=== PATIENT | female | born 1985 | race Two or more races ===

== ENCOUNTER 2021-03-15 00:59 | Emergency (ER) | payer OTHER ==
[~2021-03-15] VITALS: Ht 162.6 cm; Wt 86.4 kg
[2021-03-15 01:05] VITALS: BP 142/84
--- NOTE | 2021-03-15 01:12 | NUR ---
PATIENT AMBULATORY TO [facility] AREA OF ER WITH C/O SOB, FEVER OF 103 DEGREES, EXTREME BODY ACHES, DIARRHEA, AND DEHYDRATION. DENIES KNOWN EXPOSURE TO COVID. PATIENT IS UNVACCINATED. WEEPING D/T NOT FEELING WELL. O2 SAT 98% ON ROOM AIR.
--- NOTE | 2021-03-15 01:49 | NUR ---
PT SOBBING LOUDLY, STATES SHE NEEDS PAIN MEDICATION, ADVISED MD IS IN A PROCEEDURE AND NOT ABLE TO COME SEE HER PRESENTLY. PT. ANGRY WITH RN. SECURITY AWARE.
--- NOTE | 2021-03-15 03:30 | NUR ---
PATIENT IS SOBBING NON-STOP AND COMPLAINING THAT SHE WANTS TO LIE ON THE GROUND. PATIENT INFORMED THAT WE DID NOT HAVE RECLINER OR GURTYRON IN THE RAP AREA, SO PATIENT WAS GIVEN EXTRA CHAIR TO REST LEGS ON.
[2021-03-15] MEDS ORDERED: acetaminophen 325mg tablet PO ONE (03:45)
[2021-03-15] MEDS ORDERED: ALBU8HFA PO (03:51)
[2021-03-15] MEDS ORDERED: dexamethasone 4mg tablet PO ONE ×2 (03:55)
[2021-03-15] MEDS ORDERED: DEXAMETHASONE 6 MG TABLET PO ONE (03:55)
--- NOTE | 2021-03-15 04:00 | NUR ---
[facility] NSTRUCTIONS GIVEN TO PATIENT WITH TYLENOL FOR ELEVATED TEMPERATURE. PATIENT IS UPSET BECAUSE SHE WAS "NOT GIVEN ANY PAIN MEDICATION OR IV FLUIDS". PATIENT INFORMED THAT THE DOCTOR EVALUATED HER AND HAS PRESCRIBED TYLENOL AND DC RX FOR ALBUTEROL INHALER. PATIENT DEPARTED AMBULATORY IN STABLE CONDITION.
--- NOTE | 2021-03-15 04:25 | NUR ---
PATIENT FOLDED UP DC INSTRUCTIONS AND PRESCRIPTION AND PUT THE PAPERWORK IN THE GARBAGE PRIOR TO LEAVING THE ER RAP AREA.
--- NOTE | 2021-03-15 20:37 | NUR ---
received fax from lab pt is + covid. Called number on file, LM for her to call special agent in charge of er and phone number left for her to call.
== END 2021-03-16 07:24 | disposition home or self-care (01) ==
LOC: ER 05:07
DX: U07.1 COVID-19 (principal); R50.9 Fever, unspecified; Z88.6 Allergy status to analgesic agent; Z79.899 Other long term (current) drug therapy
CPT/HCPCS: 71045; 87635; 99283; C9803

== ENCOUNTER 2021-10-05 12:18 | Emergency (ER) | payer MEDICAID, OTHER ==
[~2021-10-05] VITALS: Ht 162.6 cm; Wt 90.9 kg
[2021-10-05] MEDS ORDERED: diphenhydrAMINE 50 mg/ml inj IM ONE (13:55)
[2021-10-05] MEDS ORDERED: proCHLORperazine 10 MG/2 ml inj IM ONE (13:55)
[2021-10-05] MEDS ORDERED: SUMAtriptan 5 mg Nasal Spray NS ONE (15:50)
[2021-10-05] MEDS ORDERED: SUMAtriptan 25 MG tablet PO ONE (16:00)
[2021-10-05 16:12] LABS: BASOPHILS % (AUTO) 0.4 % (0-1); EOSINOPHILS # (AUTO) 0.1 X10'3 (0-0.9); HEMOGLOBIN 13.8 g/dl (12.0-16.0); LYMPHOCYTES # (AUTO) 2.8 X10'3 (1.1-4.8); LYMPHOCYTES % (AUTO) 23.4 % (21-51); MEAN CORPUSCULAR HEMOGLOBIN 30.1 PG (27.0-31.0); MEAN CORPUSCULAR HGB CONC 33.7 g/dL (33.0-36.5); MEAN CORPUSCULAR VOLUME 89.1 FL (78-98); MEAN PLATELET VOLUME 8.4 FL (7.4-10.4); MONOCYTES # (AUTO) 0.4 X10'3 (0-0.9); MONOCYTES % (AUTO) 3.3 % (2-12); NEUTROPHILS # (AUTO) 8.5 X10'3 (1.8-7.7); NEUTROPHILS % (AUTO) 71.9 % (42-75); PLATELET COUNT 260 X10'3 (140-440); RED CELL DISTRIBUTION WIDTH 13.1 % (11.5-14.5); WHITE BLOOD COUNT 11.8 X10'3 (4.5-11.0)
[2021-10-05] MEDS ORDERED: iohexol 350MG/ML 100ml bottle IV ONE (16:12)
--- NOTE | 2021-10-05 16:28 | NUR ---
pt to [place]
[2021-10-05 16:30] LABS: ALANINE AMINOTRANSFERASE 21 U/L (12-78); ALBUMIN 4.2 G/DL (3.4-5.0); ALBUMIN/GLOBULIN RATIO 1.1 (1.1-1.5); ALKALINE PHOSPHATASE 52 IU/L (46-116); ANION GAP 12 (8-16); ASPARTATE AMINO TRANSFERASE 17 U/L (10-37); BILIRUBIN,TOTAL 0.5 MG/DL (0.1-1.0); BLOOD UREA NITROGEN 11 MG/DL (7-18); BUN/CREATININE RATIO 17.2 (6.6-38.0); CALCIUM 8.9 MG/DL (8.5-10.1); CHLORIDE 106 MMOL/L (99-107); CREATININE 0.64 MG/DL (0.40-0.90); GLUCOSE 84 MG/DL (70-104); POTASSIUM 3.8 MMOL/L (3.5-5.1); SODIUM 143 MMOL/L (135-145); TOTAL CARBON DIOXIDE 25.3 MMOL/L (24-32); eGFR > 90 ML/MIN
--- NOTE | 2021-10-05 16:33 | NUR ---
pt back from [place]
[2021-10-05] MEDS ORDERED: LORazepam 2 mg/ml vial IV ONE (16:50)
[2021-10-05] MEDS ORDERED: normal saline 1000ML IV soln IVB ONE (16:50)
[2021-10-05] MEDS ORDERED: ketorolac trometh. 30mg/ml inj. IV ONE (16:50)
[2021-10-05 17:06] LABS: BETA HCG,QUANTITATIVE < 1.0 mIU/ml
[2021-10-05] MEDS ORDERED: SUMA100T PO (17:50)
[2021-10-05 18:15] VITALS: BP 148/86
== END 2021-10-05 18:21 | disposition home or self-care (01) ==
LOC: ER 12:19
DX: R05.9 Cough, unspecified (principal); R51.9 Headache, unspecified; R11.0 Nausea; R42 Dizziness and giddiness; Z88.6 Allergy status to analgesic agent; Z79.899 Other long term (current) drug therapy
CPT/HCPCS: 36415; 70496; 80053; 84702; 85025; 96361; 96372; 96374; 96375; 99285; J0780; J1200; J1885; J2060; J7030; Q9967

== ENCOUNTER 2021-11-07 18:21 | Emergency (ER) | payer MEDICAID ==
[~2021-11-07] VITALS: Ht 162.6 cm; Wt 90.9 kg
[2021-11-07 18:29] VITALS: BP 140/96
[2021-11-07 19:11] LABS: BASOPHILS % (AUTO) 0.3 % (0-1); EOSINOPHILS # (AUTO) 0.1 X10'3 (0-0.9); EOSINOPHILS % (AUTO) 0.5 % (0-6); HEMATOCRIT 37.4 % (35.0-45.0); HEMOGLOBIN 12.5 g/dl (12.0-16.0); LYMPHOCYTES # (AUTO) 2.6 X10'3 (1.1-4.8); LYMPHOCYTES % (AUTO) 21.1 % (21-51); MEAN CORPUSCULAR HEMOGLOBIN 29.7 PG (27.0-31.0); MEAN CORPUSCULAR HGB CONC 33.5 g/dL (33.0-36.5); MEAN CORPUSCULAR VOLUME 88.8 FL (78-98); MEAN PLATELET VOLUME 8.5 FL (7.4-10.4); MONOCYTES # (AUTO) 0.6 X10'3 (0-0.9); MONOCYTES % (AUTO) 5.3 % (2-12); NEUTROPHILS # (AUTO) 8.8 X10'3 (1.8-7.7); NEUTROPHILS % (AUTO) 72.8 % (42-75); PLATELET COUNT 229 X10'3 (140-440); RED BLOOD COUNT 4.21 X10'6 (4.20-5.60); RED CELL DISTRIBUTION WIDTH 13.2 % (11.5-14.5); WHITE BLOOD COUNT 12.1 X10'3 (4.5-11.0)
[2021-11-07 19:25] LABS: ALANINE AMINOTRANSFERASE 20 U/L (12-78); ALBUMIN 4.1 G/DL (3.4-5.0); ALBUMIN/GLOBULIN RATIO 1.1 (1.1-1.5); ALKALINE PHOSPHATASE 50 IU/L (46-116); ANION GAP 12 (8-16); ASPARTATE AMINO TRANSFERASE 17 U/L (10-37); BILIRUBIN,TOTAL 0.7 MG/DL (0.1-1.0); BLOOD UREA NITROGEN 13 MG/DL (7-18); BUN/CREATININE RATIO 16.5 (6.6-38.0); CALCIUM 9.1 MG/DL (8.5-10.1); CHLORIDE 104 MMOL/L (99-107); CREATININE 0.79 MG/DL (0.40-0.90); GLUCOSE 86 MG/DL (70-104); POTASSIUM 3.5 MMOL/L (3.5-5.1); SODIUM 140 MMOL/L (135-145); TOTAL CARBON DIOXIDE 23.6 MMOL/L (24-32); TOTAL PROTEIN 7.9 G/DL (6.4-8.2); eGFR 81 ML/MIN
== END 2021-11-07 23:10 | disposition home or self-care (01) ==
LOC: ER 18:22
DX: Z88.6 Allergy status to analgesic agent (principal); Z79.899 Other long term (current) drug therapy
CPT/HCPCS: 36415; 71045; 80053; 84484; 85025; 93005; 99285

== ENCOUNTER 2023-04-24 16:52 | Emergency (ER) | payer MEDICAID ==
[~2023-04-24] VITALS: Ht 162.6 cm; Wt 90.9 kg
[2023-04-24 20:19] VITALS: BP 136/92; PULSE 78; RESP 18; TEMP 98.2; O2SAT 99
== END 2023-04-24 20:21 | disposition home or self-care (01) ==
LOC: ER 16:52
DX: O26.891 Other specified pregnancy related conditions, first trimester (principal); R10.9 Unspecified abdominal pain; Z88.6 Allergy status to analgesic agent
CPT/HCPCS: 99281